=== PATIENT | male | born 1955 | race Hispanic/Latino ===

== ENCOUNTER 2021-05-01 17:45 | Emergency (ER) | payer MEDICARE, SELFPAY ==
[2021-05-01 18:23] LABS: #Basophils 0.2 thou/uL (0.0-0.2); #Eosinphils 0.1 thou/uL (0.0-0.7); #Lymphocytes 1.4 thou/uL (1.20-3.40); #Monocytes 0.8 thou/uL (0.11-0.59); #Neutrophils 16.2 thou/uL (1.40-6.50); %Basophils 0.9 % (0.0-1.0); %Eosinophils 0.6 % (0.0-10.0); %Lymphocytes 7.6 % (21.0-51.0); %Monocytes 4.5 % (0.0-10.0); %Neutrophils 86.4 % (42.0-75.0); Mean Corpuscular HGB CONC 32.7 g/dL (32.0-36.0); Mean Corpuscular Hemoglobin 26.5 pg (27.0-31.0); Mean Corpuscular Volume 80.9 fL (78.0-98.0); Mean Platelet Volume 8.4 fL (7.4-10.4); Platelet Count 348 thou/uL (130-400); RBC Distribution Width 11.2 % (11.5-14.5); Red Blood Cell (RBC) Count 6.05 mill/uL (4.70-6.10); White Blood Cell (WBC) Count 18.7 thou/uL (4.8-10.8)
[2021-05-01 18:40] LABS: ALT (SGPT) 8 U/L (8-55); AST (SGOT) 8 U/L (5-34); Albumin 3.6 g/dL (3.4-4.8); Alkaline Phosphatase 119 U/L (40-110); Anion Gap 19 mmol/L (10-20); BUN (Urea Nitrogen) 24 mg/dL (8.4-25.7); Bilirubin, Total 0.4 mg/dL (0.2-1.2); Calc. Creatinine Clearance 0 mL/min (70-130); Calcium 9.3 mg/dL (7.8-10.44); Carbon Dioxide 16 mmol/L (23-31); Chloride 101 mmol/L (98-107); Globulin 4.3 g/dL (2.4-3.5); Glucose 390 mg/dL (80-115); Potassium 3.8 mmol/L (3.5-5.1); Protein, Total 7.9 g/dL (5.8-8.1); Sodium 132 mmol/L (136-145)
[2021-05-01] MEDS ORDERED: Cefepime 2 GM VIAL ONE (18:41)
[2021-05-01] MEDS ORDERED: Sodium Chloride 0.9% 100 ML ONE (18:41)
[2021-05-01] MEDS ORDERED: Sodium Chloride 0.9% 1,000 ML ONE ×2 (18:44)
[2021-05-01 18:46] LABS: Bilirubin Negative (Negative); Blood, Urine Trace (Negative); Glucose, Urine (Dipstick) >=1000 mg/dL (Negative); Ketone, Urine 40 mg/dL (Negative); Leukocyte Small (Negative); Nitrite Negative (Negative); Protein, Urine (Dipstick) Negative (Neg-Trace); Specific Gravity, Urine 1.015 (1.005-1.030); Urobilinogen 0.2 mg/dL (Less than 2)
[2021-05-01] MEDS ORDERED: Morphine 4 MG/ML VIAL ONE (18:55)
[2021-05-01] MEDS ORDERED: Ondansetron PF 4 MG/2 ML Vial ONE (18:55)
[2021-05-01 19:02] LABS: Clarity SL HAZY (Clear)
[2021-05-01] MEDS ORDERED: Sodium Chloride 0.9% 500 ML ONE (19:02)
[2021-05-01 19:13] LABS: RBC/HPF 0-3 HPF (0-3); Squamous Epithelial 0-3 HPF (0-3)
[2021-05-01 19:14] LABS: Sperm/HPF 1+ HPF (None Seen)
[2021-05-01 21:25] LABS: Lactic Acid 1.1 mmol/L (0.5-2.2)
[2021-05-02] MEDS ORDERED: Morphine 4 MG/ML VIAL ONE (00:30)
[2021-05-02] MEDS ORDERED: Sodium Chloride 0.9% 100 ML ONE (02:41)
[2021-05-02] MEDS ORDERED: Cefepime 2 GM VIAL ONE (02:41)
== END 2021-05-02 04:21 | disposition short-term general hospital (02) ==
LOC: NAV ERS 17:45
DX: A41.9 Sepsis, unspecified organism (principal); E11.65 Type 2 diabetes mellitus with hyperglycemia; I10 Essential (primary) hypertension; D72.829 Elevated white blood cell count, unspecified; L02.31 Cutaneous abscess of buttock
CPT/HCPCS: 36416; 80053; 81003; 81015; 83605; 84484; 85025; 87040; 87086; 93005; 94760; 96365; 96366; 96367; 96375; 96376; J0692; J2270; J2405; J3370; J3490; J7030; J7050

== ENCOUNTER 2023-07-18 21:57 | Emergency (ER) | payer OTHER ==
[2023-07-18 22:43] LABS: Bilirubin Small (Negative); Blood, Urine Negative (Negative); Clarity Clear (Clear); Glucose, Urine (Dipstick) 500 mg/dL (Negative); Ketone, Urine Trace mg/dL (Negative); Leukocyte Trace (Negative); Nitrite Negative (Negative); Protein, Urine (Dipstick) Trace mg/dL (Neg-Trace); Urobilinogen 0.2 mg/dL (Less than 2)
[2023-07-18 22:44] LABS: Bacteria/HPF None Seen HPF (None Seen); CAUTI Indications for Culture Dysuria,urgency,freq; RBC/HPF 0-3 HPF (0-3); Squamous Epithelial 0-3 HPF (0-3); Urine Culture Reflex No No; WBC/HPF 0-3 HPF (0-3)
== END 2023-07-18 23:06 | disposition home or self-care (01) ==
LOC: NAV ERS 21:57
DX: B34.9 Viral infection, unspecified (principal); E11.9 Type 2 diabetes mellitus without complications; I10 Essential (primary) hypertension; Z20.822 Contact with and (suspected) exposure to COVID-19
CPT/HCPCS: 71045; 81001; 87635; 87804; 99284